=== PATIENT | female | born 1965 | race American Indian/Alaskan Native ===

== ENCOUNTER 2019-02-15 20:06 | Emergency (ER) | payer MEDICAID ==
--- NOTE | 2019-02-15 20:15 | Event Note ---
ED Screening Note Date of service: 02/15/19 Time: 20:11 ED Screening Note: 53 y/o female comes in for urinary retention and lower leg swelling. Back pain since September This initial assessment/diagnostic orders/clinical plan/treatment(s) is/are subject to change based on patients health status, clinical progression and re- assessment by fellow clinical providers in the ED. Further treatment and workup at subsequent clinical providers discretion. Patient/guardian urged not to elope from the ED as their condition may be serious if not clinically assessed and managed. Initial orders include:
[2019-02-15 21:28] LABS: Bilirubin,Urine NEG (Negative); Blood,Urine NEG (Negative); Color,Urine Straw (Yellow); Mucus,Urine FEW /HPF; Protein,Urine <15 mg/dL mg/dL (Negative); Urobilinogen,Urine < 2.0 mg/dL (<2.0)
[2019-02-15 21:36] LABS: Basophils # (Auto) 0.1 K/mm3 (0.0-0.1); Basophils % (Auto) 1.1 % (0.0-1.8); Eosinophils # (Auto) 0.1 K/mm3 (0.0-0.4); Eosinophils % (Auto) 1.3 % (0.0-4.3); Hematocrit 32.3 % (30.3-42.9); Hemoglobin 10.7 gm/dl (10.1-14.3); Lymphocytes # (Auto) 1.4 K/mm3 (1.2-5.4); Lymphocytes % (Auto) 18.7 % (13.4-35.0); Mean Corpuscular HGB Conc 33 % (30-34); Mean Corpuscular Volume 82 fl (79-97); Monocytes # (Auto) 0.6 K/mm3 (0.0-0.8); Monocytes % (Auto) 7.7 % (0.0-7.3); Platelet Count 228 K/mm3 (140-440); Red Blood Count 3.95 M/mm3 (3.65-5.03); Red Cell Distribution Width 17.1 % (13.2-15.2)
[2019-02-15] MEDS ORDERED: PHENERGAN PO ONE (21:53)
[2019-02-15] MEDS ORDERED: NORCO 5/325 PO ONE (21:53)
[2019-02-15 21:58] LABS: Calcium 9.1 mg/dL (8.4-10.2)
--- NOTE | 2019-02-15 21:58 | Emergency Department Report ---
HPI - General Chief Complaint: Back Pain/Injury Time Seen by Provider: 02/15/19 21:04 - HPI HPI: Room 7 The patient is a 53-year-old female presenting with chief complaint of "my kidneys are hurting bad." The patient is currently at [facility] states her "kidneys" have been hurting constantly for 1 or 2 months. Patient describes it as a constant pressure/aching. The patient states she noticed lower extremity swelling for 1 day. Patient states she's had intermittent nausea vomiting for one month. Patient denies dysuria or hematuria. Patient denies history of fever Location: [See above] Duration: [See above] Quality: [See above] Severity: [See above] Modifying factors: [see above] Context: [see above] Mode of transportation: [not driving] ED Past Medical Hx - Past Medical History Previous Medical History?: Yes Hx Hypertension: Yes Hx Psychiatric Treatment: Yes (schizoaffective, borderline,) Hx COPD: Yes (no home O2) - Surgical History Past Surgical History?: Yes Additional Surgical History: Left hip surgery, bowel resection secondary to "blockage.", D&C, - Family History Family history: no significant - Social History Smoking Status: Current Every Day Smoker (1 pack per day) Substance Use Type: None (denies illicit drug use) - Medications Home Medications: Home Medications Medication Instructions Recorded Confirmed Last Taken Type Cyclobenzaprine [Flexeril] 10 mg PO TID PRN #20 tablet 02/16/19 Unknown Rx ED Review of Systems ROS: Stated complaint: KIDNEY/BACK PAIN Other details as noted in HPI Constitutional: denies: fever Eyes: denies: eye pain ENT: denies: throat pain Respiratory: no symptoms reported Cardiovascular: denies: chest pain Endocrine: no symptoms reported Gastrointestinal: nausea, vomiting. denies: abdominal pain Genitourinary: denies: dysuria, hematuria Musculoskeletal: back pain Neurological: denies: headache Physical Exam - Physical Exam Vital Signs: Vital Signs 02/15/19 02/15/19 20:10 20:11 Temperature 98.1 F 98.1 F Pulse Rate 102 H 100 H Respiratory 18 18 Rate Blood Pressure 137/100 137/100 O2 Sat by Pulse 100 100 Oximetry Physical Exam: GENERAL: The patient is well-developed well-nourished female lying on stretcher eating chips not appearing to be in acute distress. [] HEENT: Normocephalic. Atraumatic. Extraocular motions are intact. Patient has moist mucous membranes. NECK: Supple. Trachea midline CHEST/LUNGS: Clear to auscultation. There is no respiratory distress noted. HEART/CARDIOVASCULAR: Regular. There is no tachycardia. There is no gallop rub or murmur. ABDOMEN: Abdomen is soft, nontender. Patient has normal bowel sounds. There is no abdominal distention. SKIN: There is no rash. There is no edema. There is no diaphoresis. NEURO: The patient is awake, alert, and oriented. The patient is cooperative. The patient has normal speech MUSCULOSKELETAL: There is bilateral CVA tenderness left greater than right. There is no limitation range of motion. ED Course Vital Signs 02/15/19 02/15/19 20:10 20:11 Temperature 98.1 F 98.1 F Pulse Rate 102 H 100 H Respiratory 18 18 Rate Blood Pressure 137/100 137/100 O2 Sat by Pulse 100 100 Oximetry ED Medical Decision Making - Lab Data Result diagrams: 02/15/19 20:58 02/15/19 20:58 Laboratory Tests 02/15/19 02/15/19 02/15/19 20:57 20:58 20:58 WBC 7.6 RBC 3.95 Hgb 10.7 Hct 32.3 MCV 82 MCH 27 L MCHC 33 RDW 17.1 H Plt Count 228 Lymph % (Auto) 18.7 [place] % (Auto) 7.7 H Eos % (Auto) 1.3 Baso % (Auto) 1.1 Lymph # 1.4 [place] # 0.6 Eos # 0.1 Baso # 0.1 Seg Neutrophils % 71.2 H Seg Neutrophils # 5.4 Sodium 132 L Potassium 4.1 Chloride 101.8 Carbon Dioxide 17 L Anion Gap 17 BUN 9 Creatinine 1.3 H Estimated GFR 43 BUN/Creatinine Ratio 7 Glucose 71 Calcium 9.1 Total Bilirubin 0.20 AST 29 ALT 19 Alkaline Phosphatase 112 NT-Pro-B Natriuret Pep Total Protein 6.8 Albumin 4.0 Albumin/Globulin Ratio 1.4 Urine Color Straw Urine Turbidity Clear Urine pH 7.0 Ur Specific [place] 1.005 Urine Protein <15 mg/dl Urine Glucose (UA) Neg Urine Ketones Neg Urine Blood Neg Urine Nitrite Neg Urine Bilirubin Neg Urine Urobilinogen < 2.0 Ur Leukocyte Esterase Tr Urine WBC (Auto) 2.0 Urine RBC (Auto) 3.0 U Epithel Cells (Auto) 3.0 Urine Mucus Few 02/15/19 20:58 WBC RBC Hgb Hct MCV MCH MCHC RDW Plt Count Lymph % (Auto) [place] % (Auto) Eos % (Auto) Baso % (Auto) Lymph # [place] # Eos # Baso # Seg Neutrophils % Seg Neutrophils # Sodium Potassium Chloride Carbon Dioxide Anion Gap BUN Creatinine Estimated GFR BUN/Creatinine Ratio Glucose Calcium Total Bilirubin AST ALT Alkaline Phosphatase NT-Pro-B Natriuret Pep 165.7 Total Protein Albumin Albumin/Globulin Ratio Urine Color Urine Turbidity Urine pH Ur Specific [place] Urine Protein Urine Glucose (UA) Urine Ketones Urine Blood Urine Nitrite Urine Bilirubin Urine Urobilinogen Ur Leukocyte Esterase Urine WBC (Auto) Urine RBC (Auto) U Epithel Cells (Auto) Urine Mucus - Radiology Data Radiology results: report reviewed (CT abdomen and pelvis), image reviewed (CT abdomen and pelvis) [address] [address] Cat Scan Report Signed Patient: MYLENE FINLEY MR#: [id number] : 1965 Acct:[id number] Age/Sex: 53 / F ADM Date: 02/15/19 Loc: ED Attending Dr: Ordering Physician: VISHAL CONRAD MD Date of Service: 02/15/19 Procedure(s): CT abdomen pelvis wo con Accession Number(s): [id number] cc: VISHAL CONRAD MD CT ABDOMEN AND PELVIS WITHOUT CONTRAST HISTORY: Bilateral flank pain with nausea and vomiting. COMPARISON: No relevant prior imaging study available. TECHNIQUE: Axial, coronal and sagittal CT imaging of the abdomen and pelvis was performed without contrast. Lack of intravenous contrast limits evaluation of the vascular and solid organs. All CT scans at this location are performed using CT dose reduction for ALARA by means of automated exposure control. FINDINGS: Streak artifact from a left hip arthroplasty limits evaluation of the pelvis. LOWER CHEST: Trace bilateral pleural effusions are seen with mild associated atelectasis. No additional significant abnormality. LIVER: No significant abnormality. BILIARY: Cholelithiasis is noted without evidence of acute cholecystitis. No biliary ductal dilatation is seen. PANCREAS: No significant abnormality. SPLEEN: No significant abnormality. ADRENALS: No significant abnormality. KIDNEYS AND URETERS: A nonobstructive left lower renal pole stone measures 4 mm. No additional significant abnormality. GI TRACT: No significant abnormality of the stomach or small bowel. Changes from prior partial small bowel obstruction are noted anteriorly along the mid abdomen. The colon contains a moderate amount of stool without an additional significant abnormality. The appendix is not well-visualized. PERITONEUM: No free fluid. No free air. No fluid collection. LYMPH NODES: Nonspecific shotty hepatogastric nodes are noted. No additional lymphadenopathy. VASCULATURE: No significant abnormality. URINARY BLADDER: No significant abnormality. REPRODUCTIVE ORGANS: No significant abnormality. ADDITIONAL FINDINGS: None. SKELETAL SYSTEM: There is generalized osteopenia. No acute abnormality is seen. A left hip arthroplasty appears unremarkable. Degenerative changes are present throughout the spine. IMPRESSION: 1. Nonobstructive 4 mm left renal stone. 2. No additional acute abnormality. 3. Additional findings as above. Signer Name: Osvaldo Rocha MD Signed: 02/16/2019 12:33 AM Workstation Name: [id number] Transcribed By: [place] Dictated By: Osvaldo Rocha MD Electronically Authenticated By: Osvaldo Rocha MD Signed Date/Time: 02/16/19 003 DD/ 0026 TD/TT: - Differential Diagnosis UTI, pyelonephritis, renal colic, lumbar strain, renal insufficiency, CHF Critical care attestation.: If time is entered above; I have spent that time in minutes in the direct care of this critically ill patient, excluding procedure time. ED Disposition Clinical Impression: Back pain Disposition: DC-01 TO HOME OR SELFCARE Is pt being admited?: No Does the pt Need Aspirin: No Condition: Stable Instructions: Back Pain (ED) Additional Instructions: You were administered a 1 time dose of a narcotic [place] (which is a combination of hydrocodone mixed with Tylenol) tonight in the emergency department. Return to the emergency department immediately should you develop worsening symptoms, fever, inability to tolerate food or liquid or any other concerns. Prescriptions: Cyclobenzaprine [Flexeril] 10 mg PO TID PRN #20 tablet PRN Reason: Muscle Spasm Referrals: ROCHELLE BLAIR MD [Primary Care Provider] - 3-5 Days [facility] [Outside] - 3-5 Days MALOU VENTURA MD [Staff Physician] - 3-5 Days (Dr. Ventura is an orthopedic surgeon. Please follow up with him for further evaluation) Time of Disposition: 01:08
[2019-02-15 22:07] VITALS: BP 120/77
--- NOTE | 2019-02-16 00:37 | Cat Scan Report ---
CT ABDOMEN AND PELVIS WITHOUT CONTRAST HISTORY: Bilateral flank pain with nausea and vomiting. COMPARISON: No relevant prior imaging study available. TECHNIQUE: Axial, coronal and sagittal CT imaging of the abdomen and pelvis was performed without co ntrast. Lack of intravenous contrast limits evaluation of the vascular and solid organs. All CT sca ns at this location are performed using CT dose reduction for ALARA by means of automated exposure co ntrol. FINDINGS: Streak artifact from a left hip arthroplasty limits evaluation of the pelvis. LOWER CHEST: Trace bilateral pleural effusions are seen with mild associated atelectasis. No addition al significant abnormality. LIVER: No significant abnormality. BILIARY: Cholelithiasis is noted without evidence of acute cholecystitis. No biliary ductal dilatatio n is seen. PANCREAS: No significant abnormality. SPLEEN: No significant abnormality. ADRENALS: No significant abnormality. KIDNEYS AND URETERS: A nonobstructive left lower renal pole stone measures 4 mm. No additional signif icant abnormality. GI TRACT: No significant abnormality of the stomach or small bowel. Changes from prior partial small bowel obstruction are noted anteriorly along the mid abdomen. The colon contains a moderate amount of stool without an additional significant abnormality. The appendix is not well-visualized. PERITONEUM: No free fluid. No free air. No fluid collection. LYMPH NODES: Nonspecific shotty hepatogastric nodes are noted. No additional lymphadenopathy. VASCULATURE: No significant abnormality. URINARY BLADDER: No significant abnormality. REPRODUCTIVE ORGANS: No significant abnormality. ADDITIONAL FINDINGS: None. SKELETAL SYSTEM: There is generalized osteopenia. No acute abnormality is seen. A left hip arthroplas ty appears unremarkable. Degenerative changes are present throughout the spine. IMPRESSION: 1. Nonobstructive 4 mm left renal stone. 2. No additional acute abnormality. 3. Additional findings as above. Signer Name: Osvaldo Rocha MD Signed: 02/16/2019 12:33 AM Workstation Name: [id number]
== END 2019-02-16 01:43 | disposition home or self-care (01) ==
LOC: ED 20:06
DX: M54.9 Dorsalgia, unspecified (principal); M79.89 Other specified soft tissue disorders; I10 Essential (primary) hypertension; F20.9 Schizophrenia, unspecified; J44.9 Chronic obstructive pulmonary disease, unspecified; F17.210 Nicotine dependence, cigarettes, uncomplicated; Z88.1 Allergy status to other antibiotic agents; Z98.890 Other specified postprocedural states; Z79.899 Other long term (current) drug therapy
CPT/HCPCS: 36415; 74176; 80053; 81001; 83880; 85025; 99284; Q0169

== ENCOUNTER 2019-02-20 20:19 | Emergency (ER) | payer MEDICAID ==
--- NOTE | 2019-02-20 20:32 | Event Note ---
ED Screening Note Date of service: 02/20/19 Time: 20:28 ED Screening Note: This is a 53 y.o. F. that presents to the ER with SI. Admits to thinking about taking medicine or buying a gun to complete plan. Discharged from the [employer] [employer]. Current smoker. This initial assessment/diagnostic orders/clinical plan/treatment(s) is/are subject to change based on patients health status, clinical progression and re- assessment by fellow clinical providers in the ED. Further treatment and workup at subsequent clinical providers discretion. Patient/guardian urged not to elope from the ED as their condition may be serious if not clinically assessed and managed. Initial orders include: Labs
[2019-02-20 20:46] LABS: Basophils % (Auto) 0.7 % (0.0-1.8); Eosinophils # (Auto) 0.1 K/mm3 (0.0-0.4); Eosinophils % (Auto) 1.6 % (0.0-4.3); Hematocrit 31.4 % (30.3-42.9); Hemoglobin 10.3 gm/dl (10.1-14.3); Lymphocytes # (Auto) 1.1 K/mm3 (1.2-5.4); Lymphocytes % (Auto) 17.1 % (13.4-35.0); Mean Corpuscular HGB Conc 33 % (30-34); Mean Corpuscular Volume 82 fl (79-97); Monocytes # (Auto) 0.5 K/mm3 (0.0-0.8); Monocytes % (Auto) 7.7 % (0.0-7.3); Platelet Count 214 K/mm3 (140-440); Red Blood Count 3.83 M/mm3 (3.65-5.03); Red Cell Distribution Width 17.1 % (13.2-15.2)
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
[2019-02-20 21:09] LABS: BUN/Creatinine Ratio 7; Blood Urea Nitrogen 7 mg/dL (7-17); Calcium 8.8 mg/dL (8.4-10.2); Hemolysis Index 1
[2019-02-20 21:43] LABS: Bilirubin,Urine NEG (Negative); Blood,Urine NEG (Negative); Color,Urine Straw (Yellow); Protein,Urine <15 mg/dL mg/dL (Negative); Urobilinogen,Urine < 2.0 mg/dL (<2.0); WBC,Urine < 1.0 /HPF (0.0-6.0)
[2019-02-20 21:44] LABS: Amphetamine Screen,Urine PRESUMPTIVE NEGATIVE; Benzodiazepines Screen,Urine PRESUMPTIVE NEGATIVE; Cannabinoid Screen,Urine PRESUMPTIVE NEGATIVE; Cocaine Screen,Urine PRESUMPTIVE NEGATIVE; Methadone Screen,Urine PRESUMPTIVE NEGATIVE; Opiate Screen,Urine PRESUMPTIVE NEGATIVE
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
[2019-02-21] MEDS: LaMICtal PO SCH (22:22)
[2019-02-21] MEDS: RisperDAL PO SCH (22:22)
[2019-02-22] MEDS ORDERED: IBUPROFEN PO ONE ×2 (10:54→15:23)
[2019-02-22] MEDS: RisperDAL PO SCH ×2 (11:00→21:50)
[2019-02-22] MEDS: LaMICtal PO SCH ×2 (11:09→21:50)
[2019-02-22] MEDS: EFFEXOR XR PO SCH (11:43)
[2019-02-22] MEDS: PROTONIX PO SCH (11:43)
--- NOTE | 2019-02-22 11:44 | Progress Note ---
Subjective - Reason for Consult Consult date: 02/22/19 Reason for consult: Psychiatric Follow-up Evaluation - Chief Complaint Chief complaint: "I feel worse. " Patient is a 53-year-old female that presents to the emergency room with complaints of suicidal ideations , anger, and psychosis. Patient has a PPHx of schizoaffective disorder, bipolar Type. Today the patient is cooperative but anxious during the assessment. Patient is tearful and paranoid throughout the assessment. She believes that others are talking about her. She states, " I feel like dying." She endorses decrease sleep, auditory hallucinations, depressed mood, anxiety, and paranoid delusions. She reports good appetite. She denies HI's and VH's. Patient is medication compliant. She denies any side effects. Mental Status Exam - Vital signs Last Vital Signs Temp 97.5 F L 02/22/19 09:30 Pulse 92 H 02/22/19 09:30 Resp 16 02/22/19 09:30 BP 116/84 02/22/19 09:30 Pulse Ox 98 02/22/19 09:30 - Exam Narrative exam: Mental Status Exam Appearance: anxious, cooperative Behavior: regular eye contact Speech: regular rate and tone Mood: "I feel like dying"; depressed, anxious, irritable, tearful Affect: labile Thought Process: tangential, circumstantial Thought Content: denies HI's and VH's ; + SI's, AH's, and delusions Motor Activity: ambulatory Cognition: A/O x 3 Insight: poor Judgment: poor Assessment and Plan Impression: PPHx SCAD, Bipolar Type. Today the patient is anxious and irritable during the assessment. She endorses SI's, AH's, and paranoid delusions. UDS negative. Recommendation/Plan: 1. Continue 1013. 2. Continue home medications Risperdal 3mg po BID mood/psychosis, Lamictal 50mg po BID, and Effexor XR 150mg po QAM depression/anxiety. Discussed metabolic side effects of Risperdal and Lamictal (SJS-rash), Trazodone 50mg po QHS PRN insomnia. Discussed possible suicidality/medication induced miladis with the patient reference Effexor/Trazodone , she verbalized understanding. Disposition: Patient has been referred to psychiatric services. Staffed with Dr. Claudia Donis.
[2019-02-22] MEDS ORDERED: DESYREL PO PRN (13:16)
[2019-02-22] MEDS ORDERED: PROCTOSOL-HC PR PRN (15:23)
[2019-02-23] MEDS ORDERED: SPIRIVA IH SCH (09:00)
[2019-02-23] MEDS: PROTONIX PO SCH (10:26)
[2019-02-23] MEDS: EFFEXOR XR PO SCH (10:26)
[2019-02-23] MEDS ORDERED: IBUPROFEN PO ONE (10:28)
[2019-02-23] MEDS: RisperDAL PO SCH (11:03)
[2019-02-23] MEDS: LaMICtal PO SCH (11:03)
--- NOTE | 2019-02-23 11:18 | Progress Note ---
Subjective - Reason for Consult Consult date: 02/23/19 Reason for consult: Psychiatry Follow-up - Chief Complaint Chief complaint: "I feel anxious" 53-year-old female that presents to the emergency room with complaints of SI's and psychosis. Today the patient was anxious during the assessment. She stated that her anxiety is stemming from her experience at [facility] prior to coming to the ER. She would not confirm or deny SI's when asked. She did acknowledge that she haven't received her monthly Invega injection. She denies HI's and AVH's. She denies any side of effects of her medications. Mental Status Exam - Vital signs Last Vital Signs Temp 98.1 F 02/22/19 19:47 Pulse 98 H 02/22/19 19:47 Resp 18 02/22/19 19:47 BP 148/98 02/22/19 19:47 Pulse Ox 100 02/22/19 19:47 - Exam Narrative exam: MSE: Appearance: in hospital attire Behavior: regular eye contact Speech: regular rate and tone l Mood: "anxious" Affect: congruent to mood Thought Process: circumstantial Thought Content: denies SI/HI's and AVH's Motor Activity: sitting up in bed Cognition: A/O x3 Insight: somewhat vague Judgment: variable Assessment and Plan Impression: SCAD. Unspecified Anxiety DO. Today the patient was anxious during the assessment. S DDx: Bipolar DO Recommendation/Plan: Continue 1013, Risperdal 3 mg PO BID mood/psychosis, Lamictal 50 mg PO BID for mood, Effexor XR 150 mg PO QAM for depression/anxiety, and .Trazodone 50 mg PO HS PRN insomnia. Start Buspar 7.5 mg Po BID for anxiety. Discussed possible metabolic side effects of Risperdal with the patient. Discussed possible SJS with the patient reference Lamictal. Discussed possible suicidality/medication induced miladis reference antidepressants with the patient. She verbalized understanding for all her medications. Dispo: the patient was referred to inpatient psy services. Will staff with Dr. Claudia Donis.
[2019-02-23] MEDS ORDERED: BUSPAR PO SCH (12:00)
[2019-02-23 13:17] LABS: Alanine Aminotransferase 22 units/L (7-56)
[2019-02-23 13:41] LABS: HCG Qualitative,Urine Negative (Negative)
[2019-02-23 18:53] VITALS: BP 146/103
== END 2019-02-23 19:17 ==
LOC: EEVIPCON 20:19 → ED 20:19
DX: E71.312 Short chain acyl CoA dehydrogenase deficiency (principal); F41.9 Anxiety disorder, unspecified; F31.9 Bipolar disorder, unspecified; I10 Essential (primary) hypertension; J44.9 Chronic obstructive pulmonary disease, unspecified; F17.200 Nicotine dependence, unspecified, uncomplicated; F25.9 Schizoaffective disorder, unspecified; Z79.899 Other long term (current) drug therapy; Z88.6 Allergy status to analgesic agent
CPT/HCPCS: 36415; 80048; 80307; 80320; 81001; 81025; 84450; 84460; 85025; 94640; G0480